=== PATIENT | male | born 1980 | race Caucasian/White ===

== ENCOUNTER 2020-06-09 17:09 | Emergency (ER) | payer OTHER, SELFPAY ==
[2020-06-09 17:30] VITALS: BP 168/108; PULSE 95; RESP 20; TEMP 37.4; O2SAT 98
--- NOTE | 2020-06-09 17:37 | ED.GENADULT ---
HPI - General Adult General Chief complaint: Skin/Abscess/Foreign Body Stated complaint: little bumps from ankles to belly Time Seen by Provider: 06/09/20 17:37 Source: patient Mode of arrival: ambulatory Limitations: no limitations History of Present Illness HPI narrative: Patient states he went on [employer] over and states when he came back from his foot trip at that time he developed a rash to his ankles. Patient states is gotten increasingly worse and states that the rash is spread up to now his waistband in his lower back. Patient states it is very itchy. Patient is assumed that it was just poison marbella so tried treating at home with [id number] creams, Benadryl and antihistamines without much relief. Patient states that is gotten increasingly worse the last couple of days. Denies any fevers, body aches or chills. Denies any chest pain or shortness of breath. Related Data Home Medications Medication Instructions Recorded Confirmed amlodipine 10 mg PO DAILY 06/09/20 06/09/20 Allergies Allergy/AdvReac Type Severity Reaction Status Date / Time Penicillins Allergy Unknown Unknown Unverified 06/09/20 17:34 Sulfa (Sulfonamide Allergy Unknown Rash Unverified 06/09/20 17:34 Antibiotics) Review of Systems Review of Systems: Narrative: CONSTITUTIONAL: Denies fever, chills, or sweats. EYES: Denies visual changes, redness, or discharge. ENT: Denies rhinorrhea, congestion, sore throat, or otalgia. CARDIOVASCULAR: Denies chest pain, palpitations, or edema. RESPIRATORY: Denies cough or dyspnea. GASTROINTESTINAL: Denies abdominal pain, nausea, vomiting, or diarrhea. GENITOURINARY: Denies dysuria or hematuria. SKIN: Positive rash with itching from ankles all the way up to the waistband of the lower extremities MUSCULOSKELETAL: Denies back pain, joint pain, or myalgia. NEUROLOGIC: Denies headache, numbness, or weakness. PSYCHIATRIC: Denies anxiety or depression. [facility] Past Medical History Medical History Hypertension Surgical History Surgical History History of orthopedic surgery Right thumb surgery x3 Comments At the time of my signature I agree with nursing past medical history, surgical, social, and family history. There is no relevant family history pertinent to the presenting complaint. Exam Narrative: Exam Narrative: GENERAL: Well-appearing, well-nourished, and in no acute distress. HEAD: Normocephalic, atraumatic. EYES: PERRLA and EOMI. ENT: Nares clear, no rhinorrhea or epistaxis. Mucous membranes moist. NECK: Supple. No lymphadenopathy CHEST: Clear to auscultation. No respiratory distress. HEART: Regular rate and rhythm. No murmur heard. Normal peripheral pulses. ABDOMEN: Soft, nontender, nondistended, normal active bowel sounds. EXTREMITIES: Normal range of motion. No edema. SKIN: Warm, dry, patient has rash in various places to bilateral lower extremities some with pinpoint red macules some with surrounding erythema to the area there is some that are in a linear pattern some that are isolated. There is no open wounds or discharge noted. No swelling noted. NEURO: No focal deficits. Alert and oriented x3. Course Vital Signs Vital signs: Vital Signs Temperature 37.4 C 06/09/20 17:30 Pulse Rate 95 06/09/20 17:30 Respiratory Rate 20 06/09/20 17:30 Blood Pressure 168/108 H 06/09/20 17:30 Pulse Oximetry 98 06/09/20 17:30 Temperature 37.4 C 06/09/20 17:30 Pulse Rate 95 06/09/20 17:30 Respiratory Rate 20 06/09/20 17:30 Blood Pressure 168/108 H 06/09/20 17:30 Pulse Oximetry 98 06/09/20 17:30 The patient has been informed that they may have pre-hypertension or Hypertension based on a BP reading in the department. I recommend that the patient call the primary care provider listed on their discharge instructions or a physician of their choice th
== END 2020-06-09 18:08 | disposition home or self-care (01) ==
PROVIDERS: Emergency Provider Nurse Practitioner Family; PCP Family Medicine
DX: L25.5 Unspecified contact dermatitis due to plants, except food (principal); I10 Essential (primary) hypertension
CPT/HCPCS: 99203; G0463